=== PATIENT | female | born 1985 | race Caucasian/White ===

== ENCOUNTER 2017-07-22 18:18 | Emergency (ER) | payer OTHER ==
[~2017-07-22] VITALS: Ht 160 cm; Wt 87.1 kg
[2017-07-22 19:15] VITALS: BP 135/76
== END 2017-07-22 19:15 | disposition home or self-care (01) ==
LOC: ED 18:18
DX: N75.1 Abscess of Bartholin's gland (principal)
CPT/HCPCS: J2001

== ENCOUNTER 2018-10-03 19:15 | Emergency (ER) | payer OTHER ==
[~2018-10-03] VITALS: Ht 157.5 cm; Wt 56.2 kg
[2018-10-03 19:22] VITALS: Ht 157.5 cm; Wt 56.2 kg
[2018-10-03 21:08] VITALS: BP 112/68
== END 2018-10-03 21:08 | disposition home or self-care (01) ==
LOC: ED 19:15
DX: L02.412 Cutaneous abscess of left axilla (principal)